=== PATIENT | female | born 1985 | race Two or more races ===

== ENCOUNTER 2019-12-31 07:28 | Day surgery (SDC) | payer OTHER ==
[~2019-12-31] VITALS: Ht 162.6 cm; Wt 79.4 kg
[2019-12-31] VITALS (11 sets, daily range): BP systolic 105–129; BP diastolic 64–84
[2019-12-31] MEDS ORDERED: EPINEPHrine 1mg/1ml Amp ONE (07:57)
[2019-12-31] MEDS ORDERED: cefOXitin 2gm Inj ONE (07:57)
[2019-12-31] MEDS ORDERED: Dexamethasone 4mg/ml vial ONE (07:58)
[2019-12-31] MEDS ORDERED: Ropivacaine 5mg/ml Vial 20ml INJ ONE (07:58)
[2019-12-31] MEDS ORDERED: NATURE-THROID97.5 MG PO (08:37)
[2019-12-31] MEDS ORDERED: METOPROLOL PO (08:39)
[2019-12-31] MEDS ORDERED: CLARITIN10 MG ORAL (08:39)
[2019-12-31] MEDS ORDERED: SPIRONOLACTONE25 MG ORAL (08:41)
[2019-12-31] MEDS ORDERED: PREDNISONE2.5 MG ORAL (08:42)
[2019-12-31] MEDS ORDERED: DUEXIS 800-26.1 EACH PO (08:43)
[2019-12-31] MEDS ORDERED: PREDNISOLONE ACE5 M1 OP (08:44)
[2019-12-31] MEDS ORDERED: AMITRIPTYLINE H25 MG ORAL (08:46)
[2019-12-31] MEDS ORDERED: CROMOLYN S20 MG/1 ML PO (08:46)
[2019-12-31] MEDS ORDERED: plaquenil PO (08:52)
[2019-12-31] MEDS ORDERED: FOLIC ACID1 MG ORAL (08:54)
[2019-12-31] MEDS ORDERED: SELENIUM200 MC2 PO (08:54)
[2019-12-31] MEDS ORDERED: LUNESTA2 MG ORAL (08:55)
[2019-12-31] MEDS ORDERED: METHOTREXATE2.5 MG PO (08:58)
[2019-12-31] MEDS ORDERED: LR 1000ml ONE (09:00)
[2019-12-31] MEDS ORDERED: NS Irrig 1000ml ONE (09:00)
[2019-12-31] MEDS ORDERED: REPLESTA50000 UNIT PO (09:00)
[2019-12-31] MEDS ORDERED: Sterile Water Irrig 1000ml IRRIG ONE (09:00)
--- NOTE | 2019-12-31 09:11 | Pre-Procedure Note/Attestation ---
Pre-Procedure Note/Attestation Complete Prior to Procedure Planned Procedure: not applicable Procedure Narrative: Hemorrhoidectomy with fissurectomy and tag excision Indications for Procedure Pre-Operative Diagnosis: same Attestation I attest that I discussed the nature of the procedure; its benefits; risks and complications; and alternatives (and the risks and benefits of such alternatives ), prior to the procedure, with the patient (or the patient's legal public utilities sales representative). I attest that, if there was a reasonable possibility of needing a blood transfusion, the patient (or the patient's legal public utilities sales representative) was given the [facility] standardized written summary, pursuant to the Leonardo Jagjit Blood Safety Act ([place] Health and Safety Code # 1645, as amended). I attest that I re-evaluated the patient just prior to the surgery and that there has been no change in the patient's H&P, except as documented below: Poppy Hall MD Dec 31, 2019 09:11
[2019-12-31] MEDS ORDERED: Lidocaine 1% Plain 30 ml INJ ONE (09:34)
[2019-12-31] MEDS ORDERED: Propofol 200mg/20ml IV ONE (09:35)
[2019-12-31] MEDS ORDERED: Lidocaine 1% MPF 10mg/ml 5ml ONE (09:35)
[2019-12-31] MEDS ORDERED: LR 1000ml 1,000 ML IVLG SCH (10:02)
--- NOTE | 2019-12-31 10:06 | Anethesia Preoperative Eval ---
Anesthesia Pre-op PMH/ROS General Date of Evaluation: Dec 31, 2019 Time of Evaluation: 09:28 Anesthesiologist: Cecilia ASA Score: ASA 3 Mallampati Score Class I : Soft palate, uvula, fauces, pillars visible Class II: Soft palate, uvula, fauces visible Class III: Soft palate, base of uvula visible Class IV: Only hard plate visible Mallampati Classification: Class II Surgeon: Isabel Diagnosis: Hemorrhoids Surgical Procedure: Hemorrhiodectomy Anesthesia History: none Family History: no anesthesia problems Allergies: Coded Allergies: CEFACLOR (Verified Allergy, Severe, throat closes up, 12/31/19) DIPHENHYDRAMINE (Verified Allergy, Severe, anaphylaxis, 12/31/19) PENICILLINS (Verified Allergy, Severe, throat closes up, 12/31/19) VANCOMYCIN (Verified Allergy, Severe, anaphylaxis, 12/31/19) CIPROFLOXACIN (Verified Allergy, Intermediate, hives, joints swelling, 12/31/19) KETOROLAC (Verified Allergy, Intermediate, rash; hives, 12/31/19) SULFA (SULFONAMIDE ANTIBIOTICS) (Verified Allergy, Intermediate, rash; hives, 12/31/19) Medications: see eMAR Patient NPO?: Yes Past Medical History Hematology/Immune: Reports: other - Lupus Anesthesia Pre-op Phys. Exam Physician Exam Last Vital Signs Date Time Temp Pulse Resp B/P (MAP) Pulse Ox O2 Delivery O2 Flow Rate FiO2 12/31/19 08:10 Room Air 12/31/19 08:09 97.6 92 20 115/84 98 Constitutional: NAD Neurologic: CN 2-12 intact Cardiovascular: RRR Respiratory: CTA Gastrointestinal: S/NT/ND Airway Exam Mallampati Score: Class II MO: full ROM: full Teeth: intact Anesthesia Pre-op A/P Labs Urine Test Test 12/31/19 07:40 Urine HCG, Qualitative Negative (NEGATIVE) Risk Assessment & Plan Assessment: ASA 3 Plan: TIVA Status Change Before Surgery: No Pre-Antibiotics Dru Grams Cefoxitin IV Given Within 1 Hr of Incision: Yes Time Given: 09:41 Noé Brooks MD Dec 31, 2019 10:06
--- NOTE | 2019-12-31 10:07 | Immediate Post-Op Evaluation ---
Immediate Post-Op Evalulation Immediate Post-Op Evalulation Procedure: Hemorrhoidectomy Date of Evaluation: Dec 31, 2019 Time of Evaluation: 10:26 IV Fluids: 700 LR Blood Products: 0 Estimated Blood Loss: 10 Urinary Output: 0 Blood Pressure Systolic: 114 Blood Pressure Diastolic: 67 Pulse Rate: 109 Respiratory Rate: 16 O2 Sat by Pulse Oximetry: 99 Temperature (Fahrenheit): 97.3 Pain Score (1-10): 2 Nausea: No Vomiting: No Complications 0 Patient Status: awake, reacts, patent, none Hydration Status: adequate Dru Grams Cefoxitin IV Given Within 1 Hr of Incision: Yes Time Given: 09:41 Noé Brooks MD Dec 31, 2019 10:07
--- NOTE | 2019-12-31 10:08 | Brief Operative Note ---
Immediate Post Operative Note Operative Note Chief Complaint: Hemorrhoid with anal fissure and tag Pre-op Diagnosis: Hemorrhoid with anal fissure and tag Procedure: Hemorrhoidectomy with anal fissurectomy and tag excision Post-op Diagnosis: same as pre-op Findings: consistent w/pre-op dx studies Surgeon: Poppy Hall MD Anesthesiologist: Noé Brooks MD Anesthesia: moderate sedation Specimen: yes Complications: none Condition: stable Fluids: see anesthesia record Estimated Blood Loss: minimal Drains: none Implant(s) used?: No Poppy Hall MD Dec 31, 2019 10:08
[2019-12-31] MEDS ORDERED: Meperidine 25mg/0.5ml Inj (FOR RIGORS ONLY) IV PRN (10:15)
[2019-12-31] MEDS ORDERED: HYDROcodone/Acetamin 5/325 tab ORAL PRN (10:15)
[2019-12-31] MEDS ORDERED: Hydromorphone 0.5mg/0.5ml inj IVP PRN (10:15)
[2019-12-31] MEDS ORDERED: Atropine Sulfate 0.4mg/ml inj IVP PRN (10:15)
[2019-12-31] MEDS ORDERED: HYDROcodone/Acetamin 7.5/325 tab ORAL PRN (10:15)
[2019-12-31] MEDS ORDERED: Labetalol 5mg/ml 20ml vial IV PRN (10:15)
[2019-12-31] MEDS ORDERED: LORazepam Inj 2mg/ml 1ml IV PRN (10:15)
[2019-12-31] MEDS ORDERED: Metoclopramide 10mg/2ml Inj IVP PRN (10:15)
[2019-12-31] MEDS ORDERED: Acetaminophen (Non formulary) 100 ML IV ONE (10:15)
[2019-12-31] MEDS ORDERED: oxyCODONE HCL/Acetaminophen 5/325mg ORAL PRN (10:15)
[2019-12-31] MEDS ORDERED: Midazolam 2mg/2ml Inj IVP PRN (10:15)
[2019-12-31] MEDS ORDERED: fentaNYL 100 mcg/2 mL IV PRN (10:15)
--- NOTE | 2019-12-31 15:15 | Operative Note - Dictated ---
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 PROCEDURE: Hemorrhoidectomy with anal fissurectomy and anal skin tag excision. SURGEON: Poppy Hall M.D. ANESTHESIOLOGIST: Noé Brooks M.D. ANESTHESIA: Propofol sedation with local anesthetic. INDICATION FOR PROCEDURE: The patient is a 34-year-old female, who had a history of a chronic anal fissure since 2014 when she was first seen by me in the office. This fissure subsequently healed, but the patient was complaining of swollen anal skin tag with hemorrhoids. In light of the patient's findings and discomfort, it was determined at this time to proceed with excision under sedation. DESCRIPTION OF PROCEDURE: Upon consent of the patient, the patient was brought to the operating room, placed in the prone michael-knife position on the operating table. Once adequate sedation had been established with a propofol drip, the patient's buttocks were prepped and draped in the usual standard surgical fashion. 40 mL of 0.5% ropivacaine with epinephrine mixed with 8 mg of dexamethasone was used as a perianal and pudendal block. A Hill-Bearden retractor was placed into the anal canal. There were noted to be moderate internal hemorrhoids circumferentially. There was noted to be a chronic anal fissure in the anterior midline, which was well healed with external anal skin tag and an hemorrhoid attached. This was excised along with the fissure in elliptical fashion and sent to field as specimen. The mucosal skin defect was closed with interrupted 3-0 Monocryl suture. The anal canal was then irrigated and hemostasis was confirmed. An ice pack was used for postoperative swelling. Sponge, needle, and instrument counts were correct at the end of the case. The patient was awakened from anesthesia and brought to the postanesthesia recovery in stable condition. ESTIMATED BLOOD LOSS: Less than 5 mL. DRAINS: None. SPECIMEN: Hemorrhoid with anal fissure and tag. COMPLICATIONS: None. Poppy Hall M.D. DR: SARAI JOB#: [id number] CC: Poppy Hall M.D.; Fax#: [phone] Terri Noonan M.D.
== END 2019-12-31 12:10 | disposition home or self-care (01) ==
LOC: SUR 07:28
DX: K60.1 Chronic anal fissure (principal); K64.4 Residual hemorrhoidal skin tags; K64.8 Other hemorrhoids; Z88.8 Allergy status to other drugs, medicaments and biological substances; Z88.2 Allergy status to sulfonamides
CPT/HCPCS: 46261; 81025; J0131; J0171; J0694; J1100; J2001; J2250; J2704; J2795; J7120; 94003; 94150